=== PATIENT | male | born 1965 | race Two or more races ===

== ENCOUNTER 2019-05-06 00:58 | Emergency (ER) | payer MEDICAID, OTHER ==
[~2019-05-06] VITALS: Ht 180.3 cm; Wt 61.2 kg
--- NOTE | 2019-05-06 01:30 | NUR ---
JACK FROM [facility] CONTACT INFORMATION: [phone]
[2019-05-06 01:40] LABS: CALCIUM, SERUM 8.3 mg/dL (8.5-10.1); CARBON DIOXIDE 20 mmol/L (21-32); CHLORIDE 103 mmol/L (98-107); CREATININE 2.5 mg/dL (0.6-1.3); POTASSIUM 4.9 mmol/L (3.5-5.1); SODIUM SERUM 135 mmol/L (136-145); UREA NITROGEN, BLOOD 40 mg/dL (7-18)
[2019-05-06 01:42] LABS: GLUCOSE 651 mg/dL (74-106)
[2019-05-06] MEDS: IV NS 0.9% 1,000 ML IV PRN ×2 (01:57→05:53)
[2019-05-06] MEDS ORDERED: IV NS 0.9% 1,000 ML IV PRN ×5 (02:00→06:00)
[2019-05-06 02:05] LABS: ABG BASE EXCESS -7.9 mmol/L; ABG OXYGEN SATURATION 87.1 % (92.0-98.5); ABG PCO2 32.6 mmHg (35.0-45.0); ABG PH 7.333 (7.350-7.450); ABG PO2 53.1 mmHg (75.0-100.0); AaDO2 57.6 mmHg; COHb 0.6 % (0.5-1.5); MetHb 0.4 % (0.0-1.5); O2Hb 86.2 % (94.0-97.0); SITE, ABG Right Radial; VENT MODE, BG RA
--- NOTE | 2019-05-06 03:15 | NUR ---
Patient is resting comfortably in bed. Easily aroused. VSS.
[2019-05-06] MEDS ORDERED: LORAZEPAM INJ 2 MG/ML VIAL ONE ×2 (03:17→05:46)
[2019-05-06 03:22] LABS: BASOPHILS # (AUTO) 0.1 /CMM (0.0-0.2); BASOPHILS % (AUTO) 0.8 % (0.0-2.0); EOSINOPHILS % (AUTO) 1.9 % (0.0-6.0); HEMATOCRIT 37 % (39-51); HEMOGLOBIN 12.1 g/dL (13.5-17.5); LYMPHOCYTES # (AUTO) 1.4 /CMM (0.8-4.8); LYMPHOCYTES % (AUTO) 15.9 % (20.0-44.0); MEAN CORPUSCULAR HGB CONC 32 g/dl (31.0-36.0); MEAN CORPUSCULAR VOLUME 95 fL (80-96); MONOCYTES # (AUTO) 0.6 /CMM (0.1-1.30); MONOCYTES % (AUTO) 7.5 % (2.0-12.0); NEUTROPHILS # (AUTO) 6.3 /CMM (1.8-8.9); NEUTROPHILS % (AUTO) 73.9 % (43.0-81.0); PLATELET COUNT (AUTO) 271 /CMM (150-450); RED BLOOD CELL COUNT(AUTO) 3.95 MIL/uL (4.5-6.0); WHITE BLOOD COUNT (AUTO) 8.5 K/uL (4.3-11.0)
--- NOTE | 2019-05-06 03:25 | NUR ---
MD AWARE [facility] BP 184/93
[2019-05-06] MEDS ORDERED: LORAZEPAM 1 MG TABLET PO ONE (03:30)
[2019-05-06] MEDS ORDERED: LORAZEPAM INJ 2 MG/ML VIAL IV ONE ×2 (03:30→06:00)
[2019-05-06] MEDS ORDERED: TYL2T PO (03:54)
[2019-05-06] MEDS ORDERED: HYDR100T27 PO (03:54)
[2019-05-06] MEDS ORDERED: POLY119P17 PO (03:54)
[2019-05-06] MEDS ORDERED: ROSU5TAB PO (03:54)
[2019-05-06] MEDS ORDERED: FOLI0.8T2 PO (03:54)
[2019-05-06] MEDS ORDERED: AMLO10TA7 PO (03:54)
[2019-05-06] MEDS ORDERED: ASPI-1169 PO (03:54)
[2019-05-06] MEDS ORDERED: SENN-168 PO (03:54)
[2019-05-06] MEDS ORDERED: LEVO137T24 PO (03:54)
[2019-05-06] MEDS ORDERED: ESCI5TAB PO (03:54)
[2019-05-06] MEDS ORDERED: FAMO20TA8 PO (03:54)
[2019-05-06] MEDS ORDERED: MELA5TAB PO (03:54)
[2019-05-06] MEDS ORDERED: SODI15OR6 PO (03:54)
[2019-05-06] MEDS ORDERED: CARV25TA2 PO (03:54)
[2019-05-06] MEDS ORDERED: INSULIN REGULAR, HUMAN 100 UNIT/ML 10 ML VIAL IV ONE (04:00)
[2019-05-06] MEDS ORDERED: INSULIN REGULAR, HUMAN 100 UNIT/ML 10 ML VIAL SQ ONE (04:00)
[2019-05-06] MEDS ORDERED: INSULIN REGULAR, HUMAN 100 UNIT/ML 10 ML VIAL ONE (04:05)
[2019-05-06 05:32] LABS: CREATININE 2.1 mg/dL (0.6-1.3); POTASSIUM 3.6 mmol/L (3.5-5.1)
[2019-05-06 05:37] LABS: CALCIUM, SERUM 7.6 mg/dL (8.5-10.1)
--- NOTE | 2019-05-06 06:39 | NUR ---
SPOKE WITH FRANCO FROM [facility]. CONFIRMATION NUMBER [id number]. WILL CALL BACK FOR ETA
--- NOTE | 2019-05-06 08:06 | NUR ---
CALLED [facility] FOR TRANSPORT TO [facility]. ETA 30 MINUTES.
--- NOTE | 2019-05-06 08:44 | NUR ---
PT TRANSPORTED BACK TO SNF IN STABLE CONDITION.
[2019-05-06 08:46] VITALS: BP 145/82
--- NOTE | 2019-05-07 18:46 | NUR ---
SPOKE WITH DIMPLE (BATH STEWARD/STEWARDESS) FROM [facility] ABOUT MRSA RESULTS. PROVIDED FAX NUMBER AND FAX WAS SENT. [phone].
== END 2019-05-06 08:48 | disposition home or self-care (01) ==
LOC: ER 01:01
DX: R73.9 Hyperglycemia, unspecified (principal); I10 Essential (primary) hypertension; Z88.8 Allergy status to other drugs, medicaments and biological substances; Z79.899 Other long term (current) drug therapy; Z79.82 Long term (current) use of aspirin
CPT/HCPCS: 36415; 36600 ×2; 80048 ×2; 82010; 82803; 82962; 84484; 85025; 87081; 96372; 96374; 96375; 96376; 99285; J1815; J2060 ×2; J7030 ×3